=== PATIENT | female | born 1975 | race African-American/Black ===

== ENCOUNTER → 2016-08-11 | Outpatient (CLI) | payer OTHER ==
[~2016-08-11] VITALS: Ht 167.6 cm; Wt 86.2 kg
[~2016-08-11] MED LIST: AMLO10TA2 PO; CITA20TA5 PO; LORA10TA68 PO; PHEN37.598 PO; [UNRECOGNIZED DRUG - CODE] PO
[2016-08-11 12:27] VITALS: BP 133/93
--- NOTE | 2016-08-11 13:37 | RAD ---
Indication suspect mass right breast. Note is made to recent mammography and ultrasound demonstrating a suspect mass at the 11 to 12:00 position of the right breast which biopsy is recommended. Targeted ultrasound was performed. The mass could not be positively identified on ultrasound. The patient was subsequently switched to a stereotactic biopsy and scheduled for that procedure to be done 08/13/2016
== END | disposition home or self-care (01) ==
LOC: US 11:56
PROVIDERS: ATTEND Surgery
DX: R92.8 Other abnormal and inconclusive findings on diagnostic imaging of breast (principal); I10 Essential (primary) hypertension; F32.9 Major depressive disorder, single episode, unspecified; F17.210 Nicotine dependence, cigarettes, uncomplicated
CPT/HCPCS: 76641

== ENCOUNTER → 2016-08-13 | Outpatient (CLI) | payer OTHER ==
[~2016-08-13] VITALS: Ht 167.6 cm; Wt 86.2 kg
[~2016-08-13] MED LIST changes: +LIDOCAINE 1% / SOD BICARB 8.4% 20 ML VIAL. IJ ONE; +LIDOCAINE 2%/EPI 1:100,000 20 ML VIAL. IJ ONE
[2016-08-13 12:13] VITALS: BP 147/69
--- NOTE | 2016-08-14 09:05 | RAD ---
Indication mass right breast. The patient has had recent outside mammography and ultrasound. A mass was seen at the 12:00 position of the right breast on those outside examinations for which histologic sampling had been advised. Those outside examinations were reviewed Note is made of an attempt at ultrasound-guided biopsy 08/11/2016. On that examination no mass was seen at the 12:00 position of the right breast and a stereotactic biopsy was scheduled. The patient was placed on the stereotactic table. Images were obtained. No mass was identified. Subsequently conventional images of the right breast were obtained. No mass in the right breast was seen. The mass on the outside examination was likely a cyst which, in the interval, has ruptured. The findings were explained to the patient. The images were also shared with the patient. A follow-up right breast mammogram is suggested in 6 months to further document stability. Following that, return to annual screening mammography is advised. IMPRESSION: No mass seen in the right breast warranting biopsy. Follow-up mammography of the right breast in 6 months advised. A return to annual screening mammography subsequent to that advised. BI-RADS 2. Benign findings.
== END | disposition home or self-care (01) ==
LOC: MAMMO 11:39
PROVIDERS: ATTEND Surgery
DX: R92.8 Other abnormal and inconclusive findings on diagnostic imaging of breast (principal)
CPT/HCPCS: G0206; 77065

== ENCOUNTER → 2020-08-17 | Outpatient (CLI) | payer BC, OTHER ==
[2016-08-13 12:13] VITALS: BP 147/69
[~2020-08-17] MED LIST changes: +AMLO-187 PO; -AMLO10TA2 PO; -CITA20TA5 PO; +CITA20TA6 PO; +ETHI1TAB30 PO; -LIDOCAINE 1% / SOD BICARB 8.4% 20 ML VIAL. IJ ONE; -LIDOCAINE 2%/EPI 1:100,000 20 ML VIAL. IJ ONE; +OMEP40CA7 PO
[2020-08-17 12:20] LABS: BASO # 0.1 x10^3/uL (0.0-0.2); BASO % 1 % (0-3); EOS # 0.2 x10^3/uL (0.0-0.7); EOS % 2 % (0-3); HEMATOCRIT 43.9 % (36.0-47.0); HEMOGLOBIN 15.4 g/dL (12.0-15.5); LYMPH % 30 % (24-48); MEAN CORPUSCULAR HEMOGLOBIN 33 pg (25-35); MEAN CORPUSCULAR HGB CONC 35 g/dL (31-37); MEAN CORPUSCULAR VOLUME 93 fL (79-100); MONO # 0.5 x10^3/uL (0.0-1.1); MONO % 5 % (0-9); NEUT % 62 % (31-73); PLATELET COUNT 307 x10^3/uL (140-400); RED CELL DISTRIBUTION WIDTH 13.4 % (11.5-14.5); WHITE BLOOD COUNT 9.8 x10^3/uL (4.0-11.0)
[2020-08-17 12:27] LABS: BILIRUBIN,URINE NEGATIVE (NEG); CLARITY,URINE CLEAR; COLOR,URINE YELLOW; NITRITE,URINE POSITIVE (NEG); PROTEIN,URINE NEGATIVE (NEG-TRACE); UROBILINOGEN,URINE 0.2 mg/dL (0.2 mg/dL)
[2020-08-17 12:36] LABS: BACTERIA,URINE MANY /HPF (0-FEW)
[2020-08-17 12:39] LABS: ALBUMIN/GLOBULIN RATIO 1.1 (1.0-1.7); CALCIUM 8.6 mg/dL (8.5-10.1); CREATININE 0.9 mg/dL (0.6-1.0); GFR 82.7; POTASSIUM 3.9 mmol/L (3.5-5.1); TOTAL BILIRUBIN 0.5 mg/dL (0.2-1.0); TOTAL PROTEIN 7.7 g/dL (6.4-8.2)
--- NOTE | 2020-08-17 15:53 | RAD ---
EXAMINATION: XR CHEST 2V CLINICAL HISTORY: PRE-OP EVAL FOR HYSTERECTOMY EXAM DATE/TIME: 08/17/2020 12:16 PM COMPARISON: None FINDINGS: Lines, Tubes, and Devices: None. Cardiomediastinal Silhouette: Within normal limits. Lungs and Pleura: No evidence of focal airspace consolidation or pleural effusion. Pulmonary vasculat ure unremarkable. Bones and Soft Tissues: Degenerative changes of the thoracic spine. IMPRESSION: No evidence of acute cardiopulmonary abnormality. Electronically signed by: Tonio Alarcon DO (08/17/2020 3:50 PM) DION
== END ==
LOC: SURGPAT 11:23
PROVIDERS: ATTEND Obstetrics & Gynecology
DX: Z01.818 Encounter for other preprocedural examination (principal)
CPT/HCPCS: 36415; 71046; 80053; 81001; 85025; 87077; 87086; 87186

== ENCOUNTER 2020-08-23 06:09 | Observation (INO) | payer BC ==
[2020-08-17 11:51] VITALS: BP 141/89
[~2020-08-23] VITALS: Ht 167.6 cm; Wt 86.4 kg
[2020-08-23] VITALS (12 sets, daily range): BP systolic 100–139; BP diastolic 59–86
[~2020-08-23 06:09] MED LIST changes: +HYDROmorphone 2 MG/ML VIAL IVP PRN; +PROCHLORPERAZINE 10 MG/2 ML VIAL. IVP PRN; +fentaNYL PF VIAL 100 MCG/2 ML VIAL IVP PRN
[2020-08-23] MEDS: IV RINGERS,LACTATED 1000ML 1,000 ML IV SCH ×2 (06:52→09:53)
[2020-08-23] MEDS ORDERED: ONDANSETRON PF 4 MG/2 ML VIAL. ONE (06:53)
[2020-08-23] MEDS ORDERED: PROPOFOL 10 MG/ML (20ML) VIAL. IV ONE (06:53)
[2020-08-23] MEDS ORDERED: DEXAMETHASONE SOD PHOS 4 MG/ML VIAL ONE (06:54)
[2020-08-23] MEDS ORDERED: fentaNYL PF VIAL 100 MCG/2 ML VIAL ONE ×2 (06:55→09:25)
[2020-08-23] MEDS ORDERED: ROCURONIUM 50 MG/5 ML VIAL. ONE (06:57)
[2020-08-23] MEDS ORDERED: BUPIVACAINE-EPI 0.25%-1:200000 MPF 30 ML VIAL. ONE (07:16)
[2020-08-23] MEDS ORDERED: INDIGOTINDISULFONATE SODIUM 40 MG/5 ML AMPUL. ONE (07:16)
[2020-08-23] MEDS ORDERED: ESTROGENS, CONJ VAGINAL CREAM 30GM TUBE. ONE (07:16)
[2020-08-23] MEDS ORDERED: MORPHINE SULFATE 2 MG/ML INJ. ONE (09:25)
--- NOTE | 2020-08-23 09:29 | PDOC ---
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 Jaimie Grady Mathematics Instructor DARCIE Burdick Anesthesiologist Dr. Crow Anesthesia Type: General Blood Loss 25cc IV Fluid 600cc Urine Output 100cc clear via garcia Specimens Obtained cervix, uterus, left tube and ovary, right tube Findings normal uterus, bilateral tubes and ovaries, grossly normal RUQ Complications none Operative Note [id number] JAIMIE GRADY MD Aug 23, 2020 09:29
[2020-08-23] MEDS ORDERED: MAGNESIUM HYDROXIDE 2,400 MG/30 ML ORAL.SUSP. PO PRN (09:30)
[2020-08-23] MEDS ORDERED: SIMETHICONE 80 MG TAB.CHEW PO PRN (09:30)
[2020-08-23] MEDS ORDERED: CALCIUM CARBONATE 500 MG TAB.CHEW PO PRN (09:30)
[2020-08-23] MEDS ORDERED: NALOXONE 0.4 MG/ML VIAL. IV PRN (09:30)
[2020-08-23] MEDS ORDERED: ONDANSETRON PF 4 MG/2 ML VIAL. IV PRN (09:30)
[2020-08-23] MEDS ORDERED: HYDROcodone/APAP 5/325MG 1 TAB TABLET PO PRN (09:30)
[2020-08-23] MEDS ORDERED: LACTULOSE 20 GM/30 ML SOLUTION. PO PRN (09:30)
[2020-08-23] MEDS ORDERED: ZOLPIDEM 5 MG TABLET. PO PRN (09:30)
[2020-08-23] MEDS ORDERED: diphenhydrAMINE HCL 25 MG CAPSULE PO PRN (09:30)
[2020-08-23] MEDS ORDERED: MAG HYDROX/ALUMINUM HYD/SIMETH 30 ML ORAL.SUSP PO PRN (09:30)
[2020-08-23] MEDS ORDERED: diphenhydrAMINE 50 MG/ML VIAL IV PRN (09:30)
[2020-08-23] MEDS ORDERED: MORPHINE SULFATE 2 MG/ML INJ. IV PRN (09:30)
[2020-08-23] MEDS ORDERED: 0.9 % SODIUM CHLORIDE 10 ML DISP.SYRIN. IV PRN (09:30)
[2020-08-23] MEDS ORDERED: KETOROLAC 30 MG/ML VIAL. ONE (09:36)
[2020-08-23] MEDS ORDERED: PROCHLORPERAZINE 10 MG/2 ML VIAL. ONE (09:38)
[2020-08-23] MEDS ORDERED: KETOROLAC 30 MG/ML VIAL. IVP ONE (09:40)
[2020-08-23] MEDS: MORPHINE SULFATE 2 MG/ML INJ. IVP PRN ×2 (09:51→10:35)
[2020-08-23] MEDS: fentaNYL PF VIAL 100 MCG/2 ML VIAL IVP PRN ×2 (09:51→10:04)
--- NOTE | 2020-08-23 10:18 | OP ---
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 PROCEDURE: Laparoscopic-assisted vaginal hysterectomy, left salpingo-oophorectomy, right salpingectomy. SURGEON: Jaimie García MD. PATIENT SERVICES REP: DARCIE Burdick. ANESTHESIOLOGIST: Conrado Crow MD. ANESTHESIA: General. ESTIMATED BLOOD LOSS: 25 mL. URINE OUTPUT: 100 mL clear via Bhatti catheter. IV FLUIDS: 600 mL of crystalloid. SPECIMENS: Cervix, uterus, left tube and ovary, right tube. FINDINGS: Grossly normal uterus, bilateral tubes and ovary, grossly normal right upper quadrant. COMPLICATIONS: None. DESCRIPTION OF PROCEDURE: This patient was taken to the operating room where general anesthesia was placed. The patient was placed in dorsal lithotomy position in [facility]. The patient's abdomen and vagina were both prepped and draped in the normal sterile fashion and a Bhatti catheter had been inserted under sterile technique. Upon my arrival, a timeout was performed. Once everyone agreed on the patient, the site, the procedure and the antibiotics, the procedure was initiated. A bivalve speculum was placed in the patient's vagina. A single-tooth tenaculum was used to grasp the anterior lip of the cervix. A 10 mL of 0.25% Marcaine with epinephrine was used to circumferentially inject around the cervix for both hemodissection and hemostatic purposes later. The Valtchev uterine manipulator was placed through the endocervical os, locked on the single-tooth tenaculum and the bivalve speculum was then removed. Top gloves were discarded and changed. Attention was then turned to the abdomen, where a small infraumbilical skin incision was made with a scalpel. A curved Anastasia was used to dissect through the subcuticular layer to the fascia. The 5 mm Visiport was used to directly enter the abdominal cavity. Opening patient pressure was 3-4 mmHg. Carbon dioxide gas was used to then appropriately insufflate the abdominal cavity to maintain a pressure of 15 mmHg. The patient was placed in Trendelenburg position and overhead lights were dimmed. Right and left lower quadrant ports were placed under direct visualization after transilluminating the abdominal wall, finding an area clear of any vasculature, making a small incision and placing the trocar in under direct visualization. A 4-5 mL of air was placed in the trocar cuff. At this point, the camera was moved laterally to look at the umbilical port. Once it was assured to be in with nothing, 4-5 mL of air was placed in that trocar cuff as well. The left tube and ovary were identified and found to be clear. The ureter was seen coursing below it. The patient wanted the left ovary out and to keep the right ovary, so going high on the infundibulopelvic ligament, cauterizing and cutting well above the level of the ureter, going over towards the uterus, crossing the left round ligament with the LigaSure, cauterizing and cutting the left side was done. Right tube and ovary were elevated. Ureter was seen coursing low in the pelvis, but going above the ovary below the tube, doing a salpingectomy on this side as she wished to retain the right ovary and then crossing the right uteroovarian pedicle with the LigaSure, cauterizing and cutting and the right round ligament, again cauterizing and cutting. The uterus was pushed cephalad. The bladder flap was lifted with atraumatic graspers and the monopolar hook was used to create the bladder flap sharply across and pull it down. The uterine vessels were obtained on the right side, crossing and then staying inside that pedicle, hugging posteriorly through the cardinal and broad ligaments. Then, crossing contralaterally hugging the uterus, going down inside that round that we had already done on the left and then going through the cardinal and broad ligaments, getting the uterine vessels and staying inside that pedicle down to the uterosacral. The uterus was completely free posteriorly, it was completely blanched. The bladder was down, vasculature was obtained. All instruments were removed and attention was turned vaginally. The single-tooth and Valtchev were removed. A weighted speculum was placed in the patient's vagina. Thyroid Ashley clamps were placed on the anterior and posterior lips of the cervix respectively. A scalpel was used to make a circumferential incision in the cervix. The blunt plastic end of the Yankauer was used to gently put traction up anteriorly on the bladder, while it was taken off sharply and peeled off the cervix. Then, an open Ray-Haroon 4 x 4 was used to gently peel up the anterior bladder peritoneum off the cervix and the anterior cul-de-sac was digitally and bluntly entered. The Ray-Haroon was passed off and the curved [place] was placed in the anterior cul-de-sac. Cervix was elevated. Posterior cul-de-sac was sharply entered with curved Funk scissors and a #0 Vicryl stitch was used to secure the posterior peritoneum to the vaginal cuff and it was tagged with a curved Anastasia clamp. The needle was cut and passed off. The short-weighted vaginal speculum was removed and replaced with the long-weighted Rui speculum in the posterior cul-de-sac. Curved Ayana clamps x 2 were placed on the patient's left uterosacral ligament where they were doubly clamped with curved Heaneys, cut with curved Funk scissors and suture ligated x 2 with 0 Vicryl. Second one was taken through the vaginal cuff, securing uterosacral ligament to the vaginal cuff. This was done exactly the same on the right side, double clamping the uterosacrals with curved Ayana's, cutting with curved Funk scissors, suture ligating x 2 with 0 Vicryl, taking the second one through the vaginal cuff, tagging it with a straight Ansatasia clamp and cutting and passing the needle off. At this point, the cervix, uterus, left tube and ovary, and right tube were delivered in total. All vasculature was obtained. There was no bleeding. No other bites needed to be taken and a sponge stick was used to examine the pedicles. A long Allis was used to grasp the anterior bladder peritoneum. The long Rui speculum was removed and the short-weighted vaginal speculum was replaced. A 2-0 Vicryl was taken through the anterior bladder peritoneum, left uterosacral ligament, posterior peritoneum and the right uterosacral ligament, thus closing the peritoneum in a pursestring like fashion. Once this was done, the right and left uterosacral tags were clipped. The cuff was closed in an anterior to posterior running locked fashion with a full length 2-0 Vicryl and tied to that posterior cuff tag, just one imbricating stitch in the middle was placed for hemostasis with excellent results. Nothing was bleeding vaginally. Sponge stick was used to examine the vaginal cuff and it was dry, so all sponge, lap and needle counts had been correct x 2 by OR personnel before going above. Attention was turned back above, where she was reinsufflated. There was no bleeding at all. Copious irrigation revealed hemostasis. Right and left pericolic gutters were clear. The right ovary looked good, that remained. Tisseel was placed over all the pedicles with excellent results. All 3 trocars, the 4-5 mL of air were taken out of the trocar cuff. The right lower quadrant was removed, no bleeding. Left lower quadrant was removed, no bleeding. Gas was released from the umbilical port and then it was removed. All 3 port sites were closed with 4-0 nylon at the skin and injected with 10 mL of local. The patient was awakened from anesthesia and brought to recovery room in stable condition. JOHN PAUL DR: Festus TID: [id number]
--- NOTE | 2020-08-23 10:45 | NUR ---
Pt. admitted to 380 from PACU, transported via bed. Pt. oriented to room, call light and POC. Pt. assessment complete and denying pain at this time. Pt. call light within reach and instructed not to get OOB without help.
[2020-08-23] MEDS: oxyCODONE/APAP 5/325 1 TAB TABLET PO PRN ×3 (13:42→22:43)
[2020-08-24 02:37] VITALS: BP 121/89
[2020-08-24] MEDS: oxyCODONE/APAP 5/325 1 TAB TABLET PO PRN ×3 (02:40→13:14)
[2020-08-24 06:19] VITALS: BP 114/74
[2020-08-24 07:51] LABS: CALCIUM 8.2 mg/dL (8.5-10.1); CREATININE 0.9 mg/dL (0.6-1.0); GFR 82.7
--- NOTE | 2020-08-24 08:38 | PDOC ---
SURGICAL PROGRESS NOTE DATE: 08/24/20 TIME: 08:24 Subjective sitting up in bed eating breakfast upon my arrival. No complaints except gassy pains. Voiding without catheter, tolerating a full diet without n/v and scant vb Vital Signs Vital Signs Date Time Temp Pulse Resp B/P (MAP) Pulse Ox O2 Delivery O2 Flow Rate FiO2 08/24/20 06:19 98.5 73 18 114/74 (87) 96 Room Air 98.5 08/23/20 10:05 10 I&O Intake and Output 08/24/20 07:00 Intake Total 2900 ml Output Total 3325 ml Balance -425 ml Intake Oral 700 ml IV Total 2200 ml Output Urine Total 3300 ml Estimated Blood Loss 25 ml PATIENT HAS A AMBROCIO: No General: Alert, Oriented X3, Cooperative, No acute distress HEENT: Atraumatic Heart: Regular rate Abdomen: Soft, Other (all port sites c/d/i) Extremities: No clubbing, No cyanosis, No edema, No tenderness/swelling Skin: No rashes, No breakdown Neuro: Normal speech Psych/Mental Status: Mental status NL, Mood NL Labs Laboratory Tests Test 08/23/20 05:42 08/24/20 06:55 Bedside Urine HCG, Qualitative Hcg negative (Negative) Hematocrit 38.9 % (36.0-47.0) Sodium Level 140 mmol/L (136-145) Potassium Level 4.0 mmol/L (3.5-5.1) Chloride Level 107 mmol/L (98-107) Carbon Dioxide Level 25 mmol/L (21-32) Anion Gap 8 (6-14) Blood Urea Nitrogen 7 mg/dL (7-20) Creatinine 0.9 mg/dL (0.6-1.0) Estimated GFR (Cockcroft-Gault) 82.7 Glucose Level 103 mg/dL (70-99) Calcium Level 8.2 mg/dL (8.5-10.1) Laboratory Tests Test 08/24/20 06:55 Hematocrit 38.9 % (36.0-47.0) Sodium Level 140 mmol/L (136-145) Potassium Level 4.0 mmol/L (3.5-5.1) Chloride Level 107 mmol/L (98-107) Carbon Dioxide Level 25 mmol/L (21-32) Anion Gap 8 (6-14) Blood Urea Nitrogen 7 mg/dL (7-20) Creatinine 0.9 mg/dL (0.6-1.0) Estimated GFR (Cockcroft-Gault) 82.7 Glucose Level 103 mg/dL (70-99) Calcium Level 8.2 mg/dL (8.5-10.1) I have reviewed the following labs, vitals, nursing Cardiovascular: No pertinent hx Pulmonary: No pertinent hx GI: No pertinent hx Heme/Onc: No pertinent hx Psych: No pertinent hx Rheumatologic: No pertinent hx ENT: No pertinent hx Renal/: No pertinent hx Endocrine: No pertinent hx Dermatology: No pertinent hx Assessment/Plan POD#1 s/p LAVH/LSO/right salpingectomy Routine PO care d/c to home later today NPV x 6 weeks light/limited activity x [address] while on narcotic pain meds already has narcotics at home OK for OTC ibuprofen as needed as well keep scheduled follow up iwith me in one week in the office call or return sooner for any other questions or concerns not limited to but including pain unrelieved with pain meds, increased or unexplained vb, or T>100.4 Justicifation of Admission Dx: Justifications for Admission: Justification of Admission Dx: Yes ORLANDO GRADY MD Aug 24, 2020 08:38
--- NOTE | 2020-08-24 08:41 | PDOC3 ---
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 Brief Hospital Course Allergies Allergies Coded Allergies Type Severity Reaction Last Updated Verified Penicillins Allergy Intermediate 08/23/20 Yes cefdinir Allergy Intermediate 08/23/20 Yes clindamycin Allergy Intermediate 08/23/20 Yes Vital Signs Vital Signs Date Time Temp Pulse Resp B/P (MAP) Pulse Ox O2 Delivery O2 Flow Rate FiO2 08/24/20 06:19 98.5 73 18 114/74 (87) 96 Room Air 98.5 08/23/20 10:05 10 Lab Results Laboratory Tests Test 08/23/20 05:42 08/24/20 06:55 Bedside Urine HCG, Qualitative Hcg negative (Negative) Hematocrit 38.9 % (36.0-47.0) Sodium Level 140 mmol/L (136-145) Potassium Level 4.0 mmol/L (3.5-5.1) Chloride Level 107 mmol/L (98-107) Carbon Dioxide Level 25 mmol/L (21-32) Anion Gap 8 (6-14) Blood Urea Nitrogen 7 mg/dL (7-20) Creatinine 0.9 mg/dL (0.6-1.0) Estimated GFR (Cockcroft-Gault) 82.7 Glucose Level 103 mg/dL (70-99) Calcium Level 8.2 mg/dL (8.5-10.1) Laboratory Tests Test 08/24/20 06:55 Hematocrit 38.9 % (36.0-47.0) Sodium Level 140 mmol/L (136-145) Potassium Level 4.0 mmol/L (3.5-5.1) Chloride Level 107 mmol/L (98-107) Carbon Dioxide Level 25 mmol/L (21-32) Anion Gap 8 (6-14) Blood Urea Nitrogen 7 mg/dL (7-20) Creatinine 0.9 mg/dL (0.6-1.0) Estimated GFR (Cockcroft-Gault) 82.7 Glucose Level 103 mg/dL (70-99) Calcium Level 8.2 mg/dL (8.5-10.1) Brief Hospital Course Ms. Tejada is a 45 old female who presented with heavy bleeding and strong family history of colon/uterine cancer. Genetic testing was positive and revealed MSH 6 mutation for rizzo syndrome. She was evaluated for GI and now wants definitive therapy for the uterine cancer risk of a hysterectomy. She underwent LAVH/LSO/right salpingectomy yesterday without complication and has had an unremarkable postoperative course. She is voiding without cather, ambulating well, tolerating a regular diet without n/v, scant vb and wanting to go home. Assessment Assessment POD#1 s/p LAVH/LSO/right salpingectomy Routine PO care d/c to home later today NPV x 6 weeks light/limited activity x [address] while on narcotic pain meds already has narcotics at home OK for OTC ibuprofen as needed as well keep scheduled follow up iwith me in one week in the office call or return sooner for any other questions or concerns not limited to but including pain unrelieved with pain meds, increased or unexplained vb, or T>100.4 Discharge Information Condition at Discharge: Stable Follow Up: Weeks Disposition/Orders: D/C to Home Scheduled Amlodipine Besylate (Amlodipine Besylate) 10 Mg Tablet, 10 MG PO DAILY, (Reported) Entered as Reported by: GABRIELA TREJO on 08/11/161219 Last Taken: Unknown Dose on 08/23/20 0515 Last Action: Reviewed on 08/23/20639 by NAVIN DYE Citalopram Hydrobromide (Citalopram Hbr) 20 Mg Tablet, 20 MG PO DAILY, (Reported) Entered as Reported by: GABRIELA TREJO on 08/11/16 1220 Last Taken: Unknown Dose on 08/22/20 Last Action: Reviewed on 08/23/20639 by NAVIN DYE Ethinyl Estradiol/Drospirenone (Drospirenone-Eth Estradiol Tab) 1 Each Tablet, 1 TAB PO DAILY for BC for 30 Days, #30 Ref 0 (Reported) Entered as Reported by: JOSE DE JESUS THOMAS on 08/17/20 1148 Last Taken: Unknown Dose on 08/22/20 Last Action: Reviewed on 08/23/20639 by NAVIN DYE Loratadine (Claritin) 10 Mg Tablet, 10 MG PO DAILY, (Reported) Entered as Reported by: GABRIELA TREJO on 08/11/16 1220 Last Taken: Unknown Dose on 08/22/20 Last Action: Reviewed on 08/23/20639 by NAVIN DYE Omeprazole (Omeprazole) 40 Mg Capsule., 40 MG PO DAILY for REFLUX, (Reported) Entered as Reported by: JOSE DE JESUS THOMAS on 08/17/20 1148 Last Taken: Unknown Dose on 08/22/20 Last Action: Reviewed on 08/23/20639 by NAVIN DYE Patient Instructions Patient Instructions POD#1 s/p LAVH/LSO/right salpingectomy Routine PO care d/c to home later today NPV x 6 weeks light/limited activity x 2 weeks NO [address] while on narcotic pain meds already has narcotics at home OK for OTC ibuprofen as needed as well keep scheduled follow up iwith me in one week in the office call or return sooner for any other questions or concerns not limited to but including pain unrelieved with pain meds, increased or unexplained vb, or T>100.4 Justicifation of Admission Dx: Justifications for Admission: Justification of Admission Dx: Yes ORLANDO GRADY MD Aug 24, 2020 08:41
[2020-08-24 10:25] VITALS: BP 104/67
[2020-08-24 13:12] VITALS: BP 110/69
--- NOTE | 2020-08-24 18:06 | PATHOLOGY ---
[facility] Accession Number: [id number] . 01 Material submitted: . uterus - CERVIX, UTERUS, LEFT OVARY, BILATERAL TUBES. Modifiers: CERVIX, LEFT OVARY, BILATERAL TUBES . 01 Clinical history: . 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 . 02 Diagnosis: Uterus and attached bilateral fallopian tubes and left ovary, laparoscopic-assisted vaginal hysterectomy with bilateral salpingectomy and left salpingo-oophorectomy: - Focal mild chronic cervicitis with squamous metaplasia. - Nabothian cysts, cervix, several, small. - Inactive/weakly proliferative endometrium. - Adenomyosis, uterine corpus, subbasal, focal. - Congestion of bilateral fallopian tubes. - Right paratubal cysts. - Cystic follicles of left ovary, several. . (JPM:lisseth; 08/24/2020) [facility] 08/24/2020 1719 Local . 02 Comment: There is no atypia or evidence of malignancy. . (JPM:mm; 08/24/2020) . 02 Electronically signed: . Jose Panda MD, Pathologist NPI- [id number] . 01 Gross description: . Fixative: Formalin Labeled: Cervix, uterus, bilateral tubes, left ovary Specimen received: Intact uterus with attached cervix, bilateral fimbriated fallopian tubes, and left ovary Uterus weight: 49 g Uterus: 8.0 cm superior to inferior, 5.0 cm cornu to cornu, and 2.8 cm anterior to posterior Serosa: Smooth pink-fan Ectocervix: Smooth and glistening (outer) to congested pink-fan (inner) Cervical os: Patent, measuring 0.8 Endocervical canal: 2.8 cm in length and 0.3-0.7 cm in diameter. Endometrial cavity: 3.5 cm in length and 0.5-2.2 cm in diameter. Endometrial thickness: 0.1-0.2 cm Myometrial thickness: 1.8-2.3 cm Lesions/abnormalities: Sectioning of the cervix reveals congested pink-fan cut surfaces with 3 focal cysts ranging from 0.3-0.5 cm filled with thick clear gel. Sectioning of the uterus reveals pink-fan cut surfaces with no whorled pattern or grossly apparent lesions. Right fallopian tube: 4.5 cm in length and 0.3-0.6 cm in diameter with attached fimbria measuring 2.0 x 1.0 x 0.8 cm Right fallopian tube appearance: Congested pink-fan with 2 paratubal cysts ranging from 0.3-0.8 cm filled with clear fluid Left fallopian tube: 3.5 cm in length and 0.4-0.6 cm in diameter with attached fimbria measuring 1.2 x 1.0 x 0.6 cm Left fallopian tube appearance: Congested pink-fan with no grossly apparent lesions Left ovary: 3 g, 3.0 x 2.0 x 1.5 cm Left ovary appearance: Smooth, palpable pink-fan (inked black), congested pink-fan with multiple cysts ranging from 0.3-0.6 cm filled with clear fluid. . Wiper [employer]ender sections are submitted as follows: A1 12:00 cervix A2 6:00 cervix A3 anterior endomyometrium A4 posterior endomyometrium A5 right fallopian tube A6 left fallopian tube A7 left ovary with cysts ([facility]; 08/23/2020) J/[facility] 08/24/2020 1625 Local . 02 Pathologist provided ICD-10: N72, N88.8, N80.0, N83.8 . 02 CPT . 190922 Specimen Comment: A courtesy copy of this report has been sent to [phone] Specimen Comment: Report sent to Performed at: [address], [place] [id number] MD Elton Zepeda MD Phone: [phone] Performed at: 02 [facility] [address] [place], [place] [id number] MD Jose Panda MD Phone: [phone]
== END 2020-08-24 13:40 | disposition home or self-care (01) ==
LOC: SURG 06:09 → 3 SO LND 09:31
PROVIDERS: ADMIT Obstetrics & Gynecology; ATTEND Obstetrics & Gynecology
DX: N92.0 Excessive and frequent menstruation with regular cycle (principal); C55 Malignant neoplasm of uterus, part unspecified; Z15.09 Genetic susceptibility to other malignant neoplasm; Z80.49 Family history of malignant neoplasm of other genital organs
CPT/HCPCS: 36415; 58552; 80048; 81025; 85014; 86850; 86900; 86901; 88307; 96360; 96361; 99406; A4314; A4930; A6219; G0378; G0379; J0780; J1100; J1885; J1956; J2270; J2405; J2704; J3010; J3480; J3490; A4657